=== PATIENT | male | born 1990 | race Two or more races ===

== ENCOUNTER 2020-08-17 22:26 | Emergency (ER) | payer MEDICAID, OTHER ==
[~2020-08-17] VITALS: Ht 172.7 cm; Wt 86.6 kg
[2020-08-18] MEDS ORDERED: ONDANSETRON HCL 4 MG/2 ML VIAL IV ONE
[2020-08-18 01:00] VITALS: BP 123/63
== END 2020-08-18 01:09 | disposition home or self-care (01) ==
LOC: ER 22:28
DX: R42 Dizziness and giddiness (principal); R07.9 Chest pain, unspecified; R51.9 Headache, unspecified; M54.2 Cervicalgia; V43.52XA Car driver injured in collision with other type car in traffic accident, initial encounter; Y93.89 Activity, other specified; Y92.488 Other paved roadways as the place of occurrence of the external cause; Y99.8 Other external cause status
CPT/HCPCS: 70450; 71045; 72125; 96374; 99285; J2405

== ENCOUNTER 2023-02-20 18:54 | Emergency (ER) | payer MEDICAID, OTHER ==
[~2023-02-20] VITALS: Ht 172.7 cm; Wt 75.9 kg
[2023-02-20] MEDS ORDERED: IBUP1TAB5 PO (20:40)
[2023-02-20] MEDS ORDERED: DOXY-346 PO (20:41)
[2023-02-20] MEDS ORDERED: MUPI2OIN2 EX (20:41)
[2023-02-20] MEDS ORDERED: CYCL-611 PO (20:41)
[2023-02-20 22:14] VITALS: BP 125/77; PULSE 63; RESP 18; TEMP 98; O2SAT 99
== END 2023-02-20 22:16 | disposition home or self-care (01) ==
LOC: ER 18:54
DX: S13.9XXA Sprain of joints and ligaments of unspecified parts of neck, initial encounter (principal); S39.012A Strain of muscle, fascia and tendon of lower back, initial encounter; S29.012A Strain of muscle and tendon of back wall of thorax, initial encounter; W18.39XA Other fall on same level, initial encounter; Y93.89 Activity, other specified; Y92.89 Other specified places as the place of occurrence of the external cause; Y99.8 Other external cause status
CPT/HCPCS: 72040; 72070; 72100